=== PATIENT | female | born 1945 | race African-American/Black ===

== ENCOUNTER 2025-08-15 22:06 | Emergency (ER) | payer OTHER ==
[~2025-08-15] VITALS: Ht 157.5 cm; Wt 89.2 kg
[2025-08-15 22:18] VITALS: O2SAT 99
[2025-08-15 23:09] LABS: BASOPHILS % 0.4 % (0.0-2.0); EOSINOPHILS % 1.3 % (0.0-5.0); HEMATOCRIT. 33.1 % (36.0-48.0); HEMOGLOBIN. 10.6 g/dL (12.0-16.0); LYMPHOCYTES % 27.5 % (20.0-50.0); MEAN PLATELET VOLUME 8.8 fl (7.4-10.4); MONOCYTES % 13.7 % (2.0-8.0); NEUTROPHILS % 57.1 % (40.0-76.0); PLATELET 206 x1000/uL (130-400); RED BLOOD CELL COUNT 3.54 mill/uL (4.2-5.4); RED CELL DISTRIBUTION WIDTH 14.1 % (11.6-14.6)
[2025-08-15 23:14] LABS: CREATININE 1.3 mg/dL (0.6-1.0); INR 1.0
[2025-08-15 23:15] LABS: PROTEIN TOTAL 6.9 g/dL (6.0-8.3); UREA NITROGEN BLOOD 21 mg/dL (9-23)
[2025-08-15 23:16] LABS: ASPARTATE AMINOTRANSFERASE 68 IU/L (<34)
[2025-08-15 23:17] LABS: BILIRUBIN DIRECT 0.1 mg/dL (<=3.0); BILIRUBIN TOTAL 0.4 mg/dL (0.1-1.0)
[2025-08-15 23:21] LABS: TROPONIN I HIGH SENSITIVITY 52 ng/L (3.0-34)
[2025-08-15] MEDS: ASPIRIN 325MG TABLET PO ONE (23:21)
[2025-08-15] MEDS: CLOPIDOGREL 75MG TABLET PO ONE (23:21)
[2025-08-15] MEDS ORDERED: ASPI-1497 PO (23:38)
[2025-08-15] MEDS ORDERED: METF-1149 PO (23:43)
[2025-08-15] MEDS ORDERED: LISI40TA21 MT (23:45)
[2025-08-15] MEDS ORDERED: EZET10TA81 PO (23:45)
[2025-08-15] MEDS ORDERED: CARV3.1242 MT (23:45)
[2025-08-15] MEDS ORDERED: LEVO75TA7 MT (23:47)
[2025-08-15] MEDS ORDERED: FURO20TA4 MT (23:47)
[2025-08-15 23:57] LABS: CLARITY URINE CLEAR (CLEAR); COLOR URINE YELLOW (YELLOW); GLUCOSE URINE NEGATIVE (NEGATIVE); KETONES URINE NEGATIVE (NEGATIVE); LEUKOCYTE ESTERASE URINE NEGATIVE (NEGATIVE); NITRITE URINE NEGATIVE (NEGATIVE); OCCULT BLOOD URINE 2+ (NEGATIVE); PH URINE 7.5 (4.5-8.0); PROTEIN URINE 2+ (NEGATIVE); SPECIFIC GRAVITY URINE 1.019 (1.005-1.030); UROBILINOGEN URINE 0.2 E.U./dL (0.2-1.0)
[2025-08-16] MEDS: IOHEXOL-350 100 ML BOTTLE ONE
[2025-08-16 01:50] LABS: BACTERIA URINE NONE SEEN; SQUAMOUS EPITHELIAL CELL URINE 1+ /lpf (RARE/1+); WBC URINE 0-2 /hpf (0-2)
[2025-08-16 02:10] VITALS: BP 165/81; PULSE 73; RESP 20; TEMP 36.8; O2SAT 98
== END 2025-08-16 02:40 | disposition short-term general hospital (02) ==
LOC: ER 22:06 → CMPBEDREQ 08-16 03:20
DX: I63.9 Cerebral infarction, unspecified (principal); R47.1 Dysarthria and anarthria; I11.0 Hypertensive heart disease with heart failure; E03.9 Hypothyroidism, unspecified; E11.9 Type 2 diabetes mellitus without complications; Z79.890 Hormone replacement therapy; Z86.73 Personal history of transient ischemic attack (TIA), and cerebral infarction without residual deficits; Z88.0 Allergy status to penicillin; Z88.6 Allergy status to analgesic agent; Z88.8 Allergy status to other drugs, medicaments and biological substances
CPT/HCPCS: 99285; 70496; 71045; 80076; 80048; 81003; 85025; 85610; 85730; 84484; 36415; 70498; 93005; 70450; Q9967